=== PATIENT | female | born 1990 | race Caucasian/White ===

== ENCOUNTER 2017-12-22 08:52 | Outpatient (CLI) | payer BC, SELFPAY | END 2017-12-22 09:27 | disposition home or self-care (01) | LOC: LABOR 09:12 → OB 12-23 11:45 | PROVIDERS: PCP Family Medicine; Visit Provider Family Medicine | DX: O13.3 Gestational [pregnancy-induced] hypertension without significant proteinuria, third trimester (principal); Z3A.39 39 weeks gestation of pregnancy | CPT/HCPCS: 59025; G0378; G0379 ==

== ENCOUNTER → 2019-06-25 14:46 | Outpatient (CLI) | payer BC, SELFPAY ==
--- NOTE | 2019-06-25 | DI.US.S_ITS ---
PROCEDURE: US OB <= 14 WEEKS FETUS INDICATIONS: INTIAL SIZING AND DATING OUTSIDE/PRIOR DATING DATA: Last menstrual period (LMP): 05/29/19. LMP-based estimated date of delivery (BRANDON): 02/03/20. First dating scan (date and location): 06/25/19. Estimated date of delivery (BRANDON) from first dating scan: 02/18/20. TECHNIQUE: Real-time scanning was performed of the fetus and maternal pelvic organs, with image documentation. Endovaginal scanning was also performed to better visualize the fetus and maternal ovaries. COMPARISON: None. FINDINGS: Embryo: [place]-rump length measures 3 mm corresponding to 6 weeks 0 days. Heart rate measures 112 beats per minute. BRANDON is 02/18/20. Measurement variability in dating: +/- 4 weeks by LMP, +/- 7 days by mean sac diameter (use before 6 weeks gestation if crown-rump length not able to be measured), +/- 5 days by crown-rump length (up to 8 weeks 6 days gestation), +/- 7 days by crown-rump length (up to 13 weeks 6 days gestation). Maternal organs: Within normal limits, with a corpus luteal cyst. Limited images through the kidneys demonstrate no hydronephrosis. IMPRESSION: 6 week 0 day garcia IUP. Dictated by: Ray VICTORIA Interpreted: Pamela Spann MD on 06/25/2019 at 15:50 Approved by: Rodriguez Gomez M.D. on 06/29/2019 at 9:34
== END ==
PROVIDERS: PCP Family Medicine; Visit Provider Family Medicine
DX: Z34.91 Encounter for supervision of normal pregnancy, unspecified, first trimester (principal); Z3A.01 Less than 8 weeks gestation of pregnancy
CPT/HCPCS: 76801

== ENCOUNTER → 2019-09-17 14:43 | Outpatient (CLI) | payer BC, SELFPAY ==
--- NOTE | 2019-09-17 | DI.US.S_ITS ---
PROCEDURE: US OB >= 14 WEEKS FETUS INDICATIONS: ANATOMY SCAN OUTSIDE/PRIOR DATING DATA: Last menstrual period (LMP): 04/29/19. LMP-based estimated date of delivery (BRANDON): 02/03/20. First dating scan (date and location): 06/25/19. Estimated date of delivery (BRANDON) from first dating scan: 02/18/20. TECHNIQUE: Real-time scanning was performed of the fetus, with image documentation and biometric measurements. Endovaginal scanning: Not performed COMPARISON: [facility], OB <= 14 WEEKS FETUS, 06/25/2019, 15:08. FINDINGS: General: A single living intrauterine gestation is present. Presentation: Vertex. Placenta: Placental position is anterior, without previa. Amniotic fluid index: 13.0 cm, normal range is 5-24 cm. heart rate: 150 beats per minute. Maternal cervical canal: 3.5 cm long. Normal lower limit is 2.5 cm. biometrics: Biparietal diameter: 4.5 cm, 19 weeks 4 days Head circumference: 16.2 cm, 19 weeks zero days Abdominal circumference: 13.7 cm, 19 weeks one day Femur length: 2.9 cm, 18 weeks 6 days Estimated gestational age from initial scan: 18 weeks zero days Composite gestational age from present scan: 19 weeks 2 days Estimated weight and percentile: 270 g, 95th percentile Measurement variability for biometric dating: +/- 7 days from 14 weeks to 15 weeks 6 days gestation, +/- 10 days from 16 weeks to 21 weeks 6 days gestation, +/- 2 weeks from 22 weeks to 27 weeks 6 days gestation, +/- 3 weeks for 28 weeks gestation or later. weight reference: 4500 g or EFW >90/95% is considered macrosomia or large for gestational age. EFW <10% is small for gestational age. EFW 5% or less is considered intra-uterine growth restriction. Anatomic survey: Neuro: Ventricles are non-dilated at less than 10 mm. Cisterna magna is normal at 3-11 mm. Cerebellum is normal in size and morphology. Nuchal skin fold: Normal at less than 6 mm between 14-21 weeks gestational age. Face: Nose and lips, facial profile are normal. Spine: No evidence for spina bifida. Heart: 4-chambered heart is present, with normal ventricular outflow tracts. Diaphragm: Diaphragm is intact. Stomach: Left-sided stomach is present. Kidneys: No hydronephrosis. Normal is less than 5 mm in 2nd trimester, less than 7 mm in 3rd trimester. Cord: 3-vessel cord has orthotopic insertion. Bladder: Normal in size. Extremities: All 4 extremities identified. IMPRESSION: Single living intrauterine fetus in vertex presentation demonstrating top normal interval growth (95th percentile). If there is clinical concern for developing macrosomia, growth assessment ultrasound in 3-4 weeks could be performed Normal anatomic survey Dictated by: Matt Martinez M.D. on 09/17/2019 at 17:28 Approved by: Matt Martinez M.D. on 09/17/2019 at 17:33
== END ==
PROVIDERS: PCP Family Medicine; Referring Provider Family Medicine; Visit Provider Family Medicine
DX: Z36.89 Encounter for other specified antenatal screening (principal); Z3A.19 19 weeks gestation of pregnancy
CPT/HCPCS: 76811

== ENCOUNTER → 2020-01-13 16:22 | Outpatient (ROUT) | payer BC, SELFPAY | PROVIDERS: PCP Family Medicine; Visit Provider Family Medicine | DX: Z34.90 Encounter for supervision of normal pregnancy, unspecified, unspecified trimester (principal) | CPT/HCPCS: 87081 ==

== ENCOUNTER 2020-02-10 11:06 | Outpatient (CLI) | payer BC, SELFPAY | END 2020-02-10 11:55 | disposition home or self-care (01) | LOC: OB 02-14 10:44 | PROVIDERS: PCP Family Medicine; Referring Provider Family Medicine; Visit Provider Family Medicine | DX: O48.0 Post-term pregnancy (principal); Z3A.40 40 weeks gestation of pregnancy | CPT/HCPCS: 59025; G0378; G0379 ==

== ENCOUNTER → 2020-02-11 10:31 | Outpatient (CLI) | payer BC, SELFPAY ==
[2020-02-11 22:26] LABS: COVID19 Sendout Not Detected (Not Detect)
== END ==
PROVIDERS: PCP Family Medicine; Visit Provider Nurse Practitioner
DX: Z01.812 Encounter for preprocedural laboratory examination (principal)
CPT/HCPCS: 87635

== ENCOUNTER 2020-02-14 07:07 | Inpatient (IN) | payer BC, SELFPAY ==
[2020-02-14 07:25] VITALS: BP 141/86
[2020-02-14 08:13] LABS: Add Manual Diff / Slide Review NO; Basophils Absolute Auto 100 /uL (0-100); Basophils Percent Auto 1.1 % (0-2); Eosinophils Absolute Auto 100 /uL (0-450); Eosinophils Percent Auto 1.4 % (2-4); Hematocrit 37.6 % (36-46); Hemoglobin 12.8 g/dL (12.0-16.0); Lymphocytes Absolute Auto 2400 /uL (1100-4500); Lymphocytes Percent Auto 24.4 % (25-40); Mean Corpuscular HGB Conc 33.9 % (30-36); Mean Corpuscular Hemoglobin 31.4 PG (26-34); Mean Corpuscular Volume 92.5 fL (80-100); Monocytes Absolute Auto 700 /uL (0-900); Monocytes Percent Auto 6.6 % (3-14); Neutrophils Absolute Auto 6600 /uL (1500-7000); Neutrophils Percent Auto 66.5 % (50-75); Platelet Count 247 X10^3/uL (150-400); Red Blood Cell Count 4.07 X10^6/uL (4.0-5.2); Red Cell Distribution Width 13.7 % (11.6-14.8)
[2020-02-14] MEDS: LACTATED RINGERS 1,000 ML 100 ML IV (08:21)
[2020-02-14] MEDS: OXYTOCIN PREMIX 30 UNIT/500 ML PLAST..BAG IV (08:22)
--- NOTE | 2020-02-14 15:03 | P.PCNOB_ITS ---
Labor & Delivery Delivery date: 02/14/20 Intrapartal events: Precipitous Labor < 3 hours Cervical ripening method: none Induction method: per pitocin protocol Delivery augmentation: rupture of membranes Delivery monitor: external FHT and external uterine Route of delivery: L&D Laceration Description: Perineal - 2nd Degree Delivery repair: chromic Estimated blood loss (mL): 300 Anesthesia type: None Complications: none Narrative: Identifying data: Pleasant 29-year-old at 40 and 6 7th weeks estimated gestational age presents to labor and delivery for induction of labor due to history of precipitous delivery and postdates. Patient had coded screening that was negative prior to admission. She had a unremarkable . She is GBS negative. She is Rh negative and status post RhoGAM. Glucose tolerance test 134. Patient was found to be 3-4 cm dilated at the onset of the induction -1 to 0 station 85% effaced. Pitocin was begun Stage I colon lasted 1 hour and 13 minutes Pitocin was started and patient had irregular contractions but did not have significant pain. Maximum Pitocin was 10. Artificial rupture membranes was performed for augmentation of labor at 12:55 p.m. which was clear fluid. Serge plummer immediately had increase in frequency of her uterine contractions and as well her discomfort with the uterine contractions. The Pitocin was turned down to 6 and then to 3 and then shortly thereafter was turned off. External tocometer and heart monitor were used throughout this stage. Baby had a baseline in the 130s with moderate variability and accelerations with occasional variable D cells. This was a category 1 tracing. Uterine contractions occasionally showed coupling and contractions every 1-3 minutes. Ultrasound of baby showed possible L OT position. Once rupture membranes more regular and significant uterine contractions immediately instituted. I checked the patient at approximately 1:30 a.m. and she had made change from 4-5 cm when I did her rupture membranes to 6 or 7 cm. This was 35 minutes after rupture membranes. Fluid was clear. Patient was ruptured for 1 hour and 13 minutes prior to delivery. Patient was noted to have anterior lip and I was phoned to come over. Patient was noted to be complete at 2:08 p.m. and began pushing immediately. Stage II lasted 10 minutes Normal spontaneous vaginal delivery of a viable female with Apgars 8 at 1 minute and 9 at 5 minutes. Weight is pending. Mom was able to effectively push. Baby was felt to be in CHRISTINA presentation. External heart monitor was used throughout this stage which showed re assuring heart tones with the cells to the 110s 120s with pushing with good recovery and excellent variability. Overall category 1 tracing. Uterine contractions every 2-3 minutes without Pitocin. Within just a few pushes my baby was crying. Mom was feeling significant amount of pressure and therefore continue to push with a very tight perineum and her previous second-degree scar. The tissue was just not stretching from mom was able to continue to generate enough pressure and the head was delivered in CHRISTINA position. There was a loose nuchal cord that was reduced on the perineum and the knee easily the anterior and posterior shoulder were delivered a baby was placed on mom's chest without any problems. Baby was vigorous at delivery. Stage III lasted 3 minutes Normal spontaneous vaginal delivery of an intact minimally calcified placenta with her peripheral cord insertion. Three-vessel cord. Pitocin was run in immediately as placenta was delivering. The cervix and vagina showed no lacerations or no abnormalities. There was a very small second-degree perineal laceration that was repaired with 1% lidocaine with 2-0 and 3-0 chromic suture in the usual fashion. There was a small right periurethral laceration. At the time this dictation both mom and baby are doing well. Plan for aftercare: Routine care A negative, antibody screen negative will need RhoGAM
--- NOTE | 2020-02-14 15:18 | P.HPOB_ITS ---
OB HPI Date/Time Date of admission: 02/14/20 Date Patient Seen: 02/14/20 Time Patient Seen: 08:00 History of Present Condition Chief complaint: maternity : 2 Para: 1 Estimated Date of Delivery: 02/08/20 Estimated Gestational Age (weeks): 40 6/7 Narrative: Daniela Luna is a 29 year old female 40 and 6 7th weeks estimated gestational age based on an EDC of 02/08/2020. This was confirmed by first- trimester ultrasound an LMP but there was some variation and so initial due date by LMP was February 02 blood by 1st ultrasound was February 17 so due to subsequent ultrasounds including 13 weekly came up with the February 07 due date. She is here for induction due to rapid delivery previously. She has had a unremarkable . care was begun early on and she had a total of 14 visits. She had a weight gain of 35 lb. Blood work was unremarkable. She had gestational hypertension with her 1st but did not with this . She monitors her blood pressure throughout this . Past medical history is unremarkable Medications vitamins Allergies: No known drug allergies Past surgical history: Unremarkable Health and behavior is active, does not smoke or use alcohol or illicit drugs Family history: No history of congenital defect Social history: Patient previously was full bottom is now she is a [id number] mom. She lives on [facility]. She lives with her and her daughter January who is 2. She is originally from [place] in her parents are here visiting. She has good support. Indications Indication for induction OB: post dates History of Present care: none and good care Dating criteria: LMP confirmed by 1st trimester US Ultrasounds: normal 1st trimester US and normal mid trimester US Obstetrical complications: none Medical complications: none Preadmission Labs Blood type: A (-) negative -: Antibody screen: negative, Cystic fibrosis screen: negative, GBS status: negative, HBsAG: negative, HIV: negative, HSV 1: negative, HSV 2: negative and RPR/VDLR: negative -: Chlamydia screen: not detected and Gonorrhea screen: not detected -: Rubella: immune and Varicella: immune HCT: 36.5 HCAB: negative Integrated screen: none. NT normal Sequential screen: none Urine: neg Fasting blood glucose: 134 Prior (ies) History: 12/24/2017 normal spontaneous vaginal delivery of a viable female infant after a 2-1/2 hour labor at [facility] weighing 7 lb 6.5 oz name is January Evaluation Evaluation Laboratory results: Laboratory Tests 02/14/20 02/14/20 08:11 08:13 WBC 10.0 RBC 4.07 Hgb 12.8 Hct 37.6 MCV 92.5 MCH 31.4 MCHC 33.9 RDW 13.7 Plt Count 247 Neut % (Auto) 66.5 Lymph % (Auto) 24.4 L [place] % (Auto) 6.6 Eos % (Auto) 1.4 L Baso % (Auto) 1.1 Neut # (Auto) 6600 Lymph # (Auto) 2400 [place] # (Auto) 700 Eos # (Auto) 100 Baso # (Auto) 100 Blood Type A Negative Antibody Screen Negative Antibody Identification Cancelled [facility] Family History Mother No problems noted. Social History (Updated 12/24/17 @ 09:44 by Eloise Lozoya MD) number of children: 0 household members: spouse lives independently: Yes caregiver/support person: Yes housing: house pets and animals: Yes education level: college occupational status: employed Smoking Status: Never smoker Type(s) of exercise: walking Meds Home Medications and Allergies Home Medications Medication Instructions Recorded Confirmed Type PNV cmb#95-ferrous fumarate-FA 1 tab PO DAILY 12/24/17 02/14/20 History [] Allergies Allergy/AdvReac Type Severity Reaction Status Date / Time No Known Drug Allergies Allergy Verified 02/11/20 10:39 Review of Systems Review of Systems Narrative: Baby has been active. Denies headaches. Mild swelling. No significant change in discharge. Intermittent uterine contractions but nothing regular. Exam Vital Signs (past 8 hours): - 02/14/20 07:25 Blood Pressure 141/86 H Narrative Exam Narrative: Afebrile, vital signs are stable HEENT: Unremarkable Neck: Supple Chest: Clear to auscultation without wheezes rhonchi or crackles Cor: Regular rate and rhythm without a murmur Abdomen: Positive bowel sounds, soft, nontender, baby is vertex left occiput transverse, estimated weight 7 half to 8 lb Cervix: 3-4 cm dilated, 85% effaced, -1 to 0 station, intact bag of water Extremities, trace edema, pulses intact, DTRs trace heart tracing baseline 130s with moderate variability and accelerations and no decelerations. Uterine contractions every 3-4 minutes irregular Objective Labs Result Diagrams: 02/14/20 08:13 Labs: Laboratory Results - last 24 hr 02/14/20 02/14/20 08:11 08:13 WBC 10.0 RBC 4.07 Hgb 12.8 Hct 37.6 MCV 92.5 MCH 31.4 MCHC 33.9 RDW 13.7 Plt Count 247 Neut % (Auto) 66.5 Lymph % (Auto) 24.4 L [place] % (Auto) 6.6 Eos % (Auto) 1.4 L Baso % (Auto) 1.1 Neut # (Auto) 6600 Lymph # (Auto) 2400 [place] # (Auto) 700 Eos # (Auto) 100 Baso # (Auto) 100 Blood Type A Negative Antibody Screen Negative Antibody Identification Cancelled Assessment and Plan Assessment and Plan Assessment and Plan narrative: 29-year-old at 40 and 6 7th weeks estimated gestational age here for induction of labor due to history of precipitous delivery. A negative, status post RhoGAM, antibody screen negative they had to do the manual which was negative. GBS negative. Status post Tdap and flu shot. Rubella immune. Glucose tolerance test 134 Plan: Routine management Continue Pitocin for a bit and then will perform artificial rupture membranes is a suspected rapid delivery after this. She does not want epidural anesthesia. She does not want anesthesia unless she requested.
[2020-02-14] MEDS: IBUPROFEN 600 MG TABLET PO ×2 (16:04→23:37)
[2020-02-14] MEDS: DERMOPLAST SPRAY 20% 60 ML 1 SPRAY TOP (16:36)
[2020-02-15 06:27] LABS: Add Manual Diff / Slide Review NO; Basophils Absolute Auto 0 /uL (0-100); Basophils Percent Auto 0.3 % (0-2); Eosinophils Absolute Auto 100 /uL (0-450); Eosinophils Percent Auto 0.5 % (2-4); Hematocrit 34.8 % (36-46); Hemoglobin 11.7 g/dL (12.0-16.0); Lymphocytes Absolute Auto 2600 /uL (1100-4500); Lymphocytes Percent Auto 20.4 % (25-40); Mean Corpuscular HGB Conc 33.5 % (30-36); Mean Corpuscular Hemoglobin 30.8 PG (26-34); Mean Corpuscular Volume 91.9 fL (80-100); Monocytes Absolute Auto 600 /uL (0-900); Neutrophils Absolute Auto 9500 /uL (1500-7000); Neutrophils Percent Auto 73.8 % (50-75); Platelet Count 254 X10^3/uL (150-400); Red Blood Cell Count 3.79 X10^6/uL (4.0-5.2); Red Cell Distribution Width 13.3 % (11.6-14.8); White Blood Cell Count 12.8 X10^3/uL (4.5-11.0)
[2020-02-15] MEDS: PRENATAL VIT,CALC/IRON/FOLIC 1 TABLET 1 TAB PO (08:11)
[2020-02-15] MEDS: DOCUSATE 100 MG CAPSULE PO (08:11)
[2020-02-15] MEDS: IBUPROFEN 600 MG TABLET PO (08:11)
--- NOTE | 2020-02-15 09:08 | P.DS_ITS ---
Discharge Providers Provider Date of admission: 02/14/20 07:07 Discharge Date: 02/15/20 Primary care physician: Eloise Lozoya MD Consults: 02/15/20 14:45 Consult to System Planning Engineer Routine Comment: Discharge provider: Eloise Lozoya MD Summary Time Spent with Patient Time attestation: Total time spent providing and/or coordinating discharge services:30 minutes patient was admitted for induction of labor and had precipitous delivery without complications. Patient Rh negative. Patient without complications. Patient with decreased lochia. Patient with pain well controlled with Motrin. Patient tolerating p.o. without difficulty and breast-feeding well without difficulty. Patient discharged home in stable condition day 1. With routine discharge instructions on vitamins and Motrin as needed as well as Colace. Will follow-up in the clinic in 2 weeks and 6 weeks. Objective Labs Result Diagrams: 02/15/20 06:05 Labs: Laboratory Results - last 24 hr 02/14/20 02/14/20 02/15/20 08:11 08:13 06:05 WBC 10.0 RBC 4.07 Hgb 12.8 Hct 37.6 MCV 92.5 MCH 31.4 MCHC 33.9 RDW 13.7 Plt Count 247 Neut % (Auto) 66.5 Lymph % (Auto) 24.4 L [place] % (Auto) 6.6 Eos % (Auto) 1.4 L Baso % (Auto) 1.1 Neut # (Auto) 6600 Lymph # (Auto) 2400 [place] # (Auto) 700 Eos # (Auto) 100 Baso # (Auto) 100 Blood Type A Negative Antibody Screen Negative Antibody Identification Cancelled Maternal Bleed Negative 02/15/20 06:05 WBC 12.8 H RBC 3.79 L Hgb 11.7 L Hct 34.8 L MCV 91.9 MCH 30.8 MCHC 33.5 RDW 13.3 Plt Count 254 Neut % (Auto) 73.8 Lymph % (Auto) 20.4 L [place] % (Auto) 5.0 Eos % (Auto) 0.5 L Baso % (Auto) 0.3 Neut # (Auto) 9500 H Lymph # (Auto) 2600 [place] # (Auto) 600 Eos # (Auto) 100 Baso # (Auto) 0 Blood Type Antibody Screen Antibody Identification Maternal Bleed Exam Vital Signs (past 8 hours): Afebrile vital signs are stable chest: Clear to auscultation without wheezes rhonchi or crackles cor: Regular rate and rhythm wi thout murmur abdomen: Positive bowel sounds, soft, nontender, nondistended extremities:moves all extremities well neurologic exam no nonfocal Discharge Plan Discharge Plan Patient Disposition: Home Health Service Discharge orders & Medications Prescriptions: New docusate sodium [DOK] 100 mg Capsule 100 mg PO BID Qty: 60 RF: 0 ibuprofen 600 mg Tablet 600 mg PO Q6HR PRN (Reason: Pain, Mild (1-3)) Qty: 60 RF: 0 Continued PNV cmb#95-ferrous fumarate-FA [] 28 mg iron- 800 mcg Tablet 1 tab PO DAILY RF: 0 Follow up/Referrals: Eloise Lozoya MD [Primary Care Provider] - Diet/Activity/Treatments Diet: Diet as Tolerated Discharge Data Primary Care Provider: Eloise Lozoya
[2020-02-15] MEDS: RHO(D) IMMUNE GLOBULIN 1,500 UNIT SYRINGE 1500 UNIT IM (12:05)
== END 2020-02-15 12:35 | disposition home health service (06) | DRG 807 ==
PROVIDERS: Admitting Provider Family Medicine; PCP Family Medicine; Referring Provider Family Medicine; Visit Provider Family Medicine
DX: O48.0 Post-term pregnancy (principal); Z37.0 Single live birth; O62.3 Precipitate labor; Z3A.40 40 weeks gestation of pregnancy; O70.1 Second degree perineal laceration during delivery
CPT/HCPCS: 36415; 59050; 76815; 85025; 85461; 86850; 86900; 86901; G0379; J2590; J2790

== ENCOUNTER → 2020-11-16 10:11 | Outpatient (CLI) | payer BC, SELFPAY ==
[2020-11-16] MEDS: COVID-19 VACC, Ad26(JANSSEN)/PF 0.5 ML IM (10:15)
== END ==
PROVIDERS: PCP Family Medicine; Visit Provider Internal Medicine
DX: Z23 Encounter for immunization (principal)
CPT/HCPCS: 0031A; 91303

== ENCOUNTER → 2021-09-12 15:32 | Outpatient (CLI) | payer BC, SELFPAY ==
--- NOTE | 2021-09-12 15:35 | DI.US.S_ITS ---
PROCEDURE: US OB <= 14 WEEKS FETUS INDICATIONS: ROUTINE OUTSIDE/PRIOR DATING DATA: Last menstrual period (LMP): 07/15/2021 LMP-based estimated date of delivery (BRANDON): 04/21/2022. First dating scan (date and location): 09/12/2021. Estimated date of delivery (BRANDON) from first dating scan: 04/29/2022. The calculations are made using the ultrasound BRANDON of 04/29/2022. TECHNIQUE: Real-time scanning was performed of the fetus and maternal pelvic organs, with image documentation. Endovaginal scanning was also performed to better visualize the fetus and maternal ovaries. COMPARISON: [facility], , OB <= 14 WEEKS FETUS, 06/25/2019, 15:08. FINDINGS: Embryo: [place]-rump length measures 1.1 cm corresponding to 7 weeks 2 days. Heart rate: 144 Maternal organs: Ovaries within normal limits, with right corpus luteal cyst. IMPRESSION: 7 week 2 day single living IUP. Incidental note of debris within the maternal urinary bladder which can be associated with cystitis in the appropriate clinical setting. Recommend correlation with urinalysis. We strive to produce accurate, complete, and clear reports of imaging services. To assist us in improving patient care, this report was composed using standard report templates and voice recognition software. Therefore, it may contain abnormal punctuation, insertions and/or omissions. Occasional wrong-word or sound-alike substitutions may occur. Though we review the report and make efforts to correct it, we do recommend that the report be read carefully in proper context to recognize any text inaccuracies. Dictated by: Ray Marie Sienna Interpreted: Jan Mckeon MD on 09/12/2021 at 16:51 Transcribed by: QUENTIN on 09/12/2021 at 16:52 Approved by: Jan Mckeon M.D. on 09/12/2021 at 18:08
== END ==
PROVIDERS: PCP Family Medicine; Referring Provider Family Medicine; Visit Provider Family Medicine
DX: Z34.81 Encounter for supervision of other normal pregnancy, first trimester (principal); Z3A.01 Less than 8 weeks gestation of pregnancy
CPT/HCPCS: 36415; 76801; 76817; 84443; 85025; 86592; 86695; 86696; 86706; 86762; 86780; 86787; 86803; 86850; 86900; 86901; 87340; 87389

== ENCOUNTER → 2021-09-12 16:30 | Outpatient (CLI) | payer BC, SELFPAY ==
[2021-09-12 17:01] LABS: Add Manual Diff / Slide Review NO; Basophils Absolute Auto 0 /uL (0-100); Basophils Percent Auto 0.5 % (0-2); Eosinophils Absolute Auto 0 /uL (0-450); Eosinophils Percent Auto 0.4 % (2-4); Hematocrit 36.2 % (36-46); Hemoglobin 12.1 g/dL (12.0-16.0); Lymphocytes Absolute Auto 2600 /uL (1100-4500); Lymphocytes Percent Auto 29.2 % (25-40); Mean Corpuscular HGB Conc 33.5 % (30-36); Mean Corpuscular Hemoglobin 29.6 PG (26-34); Mean Corpuscular Volume 88.4 fL (80-100); Monocytes Absolute Auto 500 /uL (0-900); Monocytes Percent Auto 5.7 % (3-14); Neutrophils Absolute Auto 5700 /uL (1500-7000); Neutrophils Percent Auto 64.2 % (50-75); Platelet Count 250 X10^3/uL (150-400); Red Blood Cell Count 4.09 X10^6/uL (4.0-5.2); Red Cell Distribution Width 13.4 % (11.6-14.8); White Blood Cell Count 8.9 X10^3/uL (4.5-11.0)
[2021-09-12 18:48] LABS: Thyroid Stimulating Hormone 2.57 uIU/mL (0.47-4.68)
[2021-09-12 19:02] LABS: Rubella Antibody IgG 23.1 IU/mL (>15)
[2021-09-12 19:07] LABS: HIV 1 & 2 Ab/Ag 4th Gen Combo NEGATIVE (NEGATIVE); Hep C Virus Ab w/Reflex Quant NEGATIVE s/c (NEGATIVE)
[2021-09-12 19:55] LABS: Hepatitis B Surface Antigen NEGATIVE s/c (NEGATIVE)
[2021-09-13 02:36] LABS: Hepatitis B Surf AB Quant 64.8 mIU/mL (Immunity>9.9)
[2021-09-13 03:36] LABS: RPR Screen Non Reactive (Non Reactive)
[2021-09-13 05:26] LABS: HSV 2 IGG AB < 0.91 index (0.00-0.90)
[2021-09-13 08:08] LABS: Varicella IgG Antibody <135 index (Immune >165)
[2021-09-13 20:58] LABS: Treponema pallidum Antibodies Non Reactive (Non Reactive)
== END ==
PROVIDERS: PCP Family Medicine; Referring Provider Family Medicine; Visit Provider Family Medicine
DX: Z34.80 Encounter for supervision of other normal pregnancy, unspecified trimester (principal)
CPT/HCPCS: 36415; 84443; 85025; 86592; 86695; 86696; 86706; 86762; 86780; 86787; 86803; 86850; 86900; 86901; 87340; 87389

== ENCOUNTER → 2021-12-14 14:10 | Outpatient (CLI) | payer BC, SELFPAY ==
--- NOTE | 2021-12-14 14:11 | DI.US.S_ITS ---
PROCEDURE: US OB >= 14 WEEKS FETUS INDICATIONS: anatomy screen OUTSIDE/PRIOR DATING DATA: Last menstrual period (LMP): 07/15/2021 LMP-based estimated date of delivery (BRANDON): 04/21/2022. First dating scan (date and location): 09/12/2021. Estimated date of delivery (BRANDON) from first dating scan: 04/29/2022. The calculations are made using 04/29/2022 as BRANDON. TECHNIQUE: Real-time scanning was performed of the fetus, with image documentation and biometric measurements. Endovaginal scanning: Not performed COMPARISON: None. FINDINGS: General: A single living intrauterine gestation is present. Presentation: Cephalic. Placenta: Placental position is posterior , without previa. Amniotic fluid index: 16 cm, normal. Single deepest vertical pocket is 5 cm. heart rate: 147 beats per minute. Maternal cervical canal: 3.4 cm long. biometrics: Biparietal diameter: 5.2 cm Head circumference: 19 cm Abdominal circumference: 16 cm Femur length: 3.3 cm Composite gestational age from present scan: 21 weeks 1 day Estimated weight and percentile: 382 g, 61st percentile Anatomic survey: Neuro: Small choroid plexus cyst in the right lateral ventricle. Ventricles are non-dilated at less than 10 mm. Cisterna magna is normal at 3-11 mm. Cerebellum is normal in size and morphology. Nuchal skin fold: Normal at less than 6 mm between 14-21 weeks gestational age. Face: Nose and lips, facial profile are normal. Spine: No evidence for spina bifida. Heart: 4-chambered heart is present, with normal ventricular outflow tracts. Diaphragm: Diaphragm is intact. Stomach: Left-sided stomach is present. Kidneys: No hydronephrosis. Normal is less than 5 mm in 2nd trimester, less than 7 mm in 3rd trimester. Cord: 3-vessel cord has orthotopic insertion. Bladder: Normal in size. Extremities: All 4 extremities identified. IMPRESSION: Small (3 mm) right lateral ventricle choroid plexus cysts. Otherwise normal anatomic survey We strive to produce accurate, complete, and clear reports of imaging services. To assist us in improving patient care, this report was composed using standard report templates and voice recognition software. Therefore, it may contain abnormal punctuation, insertions and/or omissions. Occasional wrong-word or sound-alike substitutions may occur. Though we review the report and make efforts to correct it, we do recommend that the report be read carefully in proper context to recognize any text inaccuracies. Dictated by: Gilberto Weber M.D. on 12/14/2021 at 16:19 Approved by: Gilberto Weber M.D. on 12/14/2021 at 16:22
== END ==
PROVIDERS: PCP Family Medicine; Referring Provider Family Medicine; Visit Provider Family Medicine
DX: Z36.89 Encounter for other specified antenatal screening (principal); Z3A.21 21 weeks gestation of pregnancy
CPT/HCPCS: 76811

== ENCOUNTER → 2022-01-25 07:03 | Outpatient (CLI) | payer BC, SELFPAY ==
[2022-01-25 09:42] LABS: Glucose Fasting Gestational 78 mg/dL (76-95)
[2022-01-25 10:34] LABS: Glucose Tol Interp,Gestational INTERPRETATION
[2022-01-25 11:47] LABS: Glucose 2 Hour Gest 118 mg/dL (76-155)
[2022-01-26 01:16] LABS: Glucose 1 Hour Gest 153 mg/dL (76-180)
[2022-01-26 08:58] LABS: Glucose 3 Hour Gest 35 mg/dL (76-140)
== END ==
PROVIDERS: PCP Family Medicine; Referring Provider Family Medicine; Visit Provider Family Medicine
DX: R73.09 Other abnormal glucose (principal); Z34.80 Encounter for supervision of other normal pregnancy, unspecified trimester
CPT/HCPCS: 36415; 82951; 82952

== ENCOUNTER → 2022-03-27 11:26 | Outpatient (CLI) | payer BC, SELFPAY ==
[2022-03-28 07:53] LABS: Strep Grp B PCR NEG for Grp B Strep
== END ==
PROVIDERS: PCP Family Medicine; Visit Provider Family Medicine
DX: Z36.85 Encounter for antenatal screening for Streptococcus B (principal)
CPT/HCPCS: 87653

== ENCOUNTER 2022-04-17 12:45 | Inpatient (IN) | payer BC, SELFPAY ==
--- NOTE | 2022-04-17 13:30 | PM.OBHP.IH.1 ---
OB HPI Date/Time Date of admission: 04/17/22 Date Patient Seen: 04/17/22 Time Patient Seen: 13:30 History of Present Condition Chief complaint: BRANDON Calculator Estimated Delivery Date Method Current WG Current Estimate 04/21/22 LMP (Certain) 39w 3d Other Estimates 05/19/22 Ultrasound #1 35w 3d 05/19/22 Manual 35w 3d Final BRANDON - PEDRO Estimated Gestational Age (weeks): 39w3d : 3 Para: 2 Narrative: 31yo at 39w3d here for NST for FHT in the 110s in clinic. Pt reports she has been feeling her baby move, although not as frequently as before. She denies any vaginal bleeding or LOF. She feels intermittent, mild contractions. Her has been complicated by choroid plexus cyst seen on anatomy scan, with normal cfDNA. care: good care, initiated at week # (9) and pounds weight gain (39) Dating criteria OB: LMP confirmed by 1st trimester US Ultrasounds: normal 1st trimester US and abnormal US findings (choroid plexus cyst) Obstetrical complications: none Medical complications OB: none Preadmission Labs Last OB Lab Results: Blood Type A Negative 09/12/21 16:37 Antibody Screen Negative 09/12/21 16:37 Hematocrit 36.2 % (36-46) 09/12/21 16:37 Hemoglobin 12.1 g/dL (12.0-16.0) 09/12/21 16:37 Hepatitis B Surface Antigen Negative s/c (NEGATIVE) 09/12/21 16:37 Hepatitis C Antibody Negative s/c (NEGATIVE) 09/12/21 16:37 Rubella Antibody 23.1 IU/mL (>15) 09/12/21 16:37 Varicella-Zoster IgG Antibody <135 index (Immune >165) L 09/12/21 16:37 Group B Streptococcus (PCR) Neg for grp b strep 03/27/22 11:26 Glucose Tolerance Testing: Fasting (78), 1 hr (153), 2 hr (118) and 3 hr (35) -: Urine: negative Genetic Screens: Cell-free DNA: Normal External Labs -: Urine: negative Prior (ies) Past Pregnancies Del. Date GA/Weeks Labor Lgth Wt Sex Route Outcome Anesthesia Place Delv Breastfeed Preg Comp Name 12/24/17 39 2 7 lb 6 oz Female vaginal live - full term none IH 1 yr induced hyper- Emily 02/14/20 41 1 8 lb 6 oz Female vaginal none IH 1 yr induced hyper- Prabha Delivery Date: 12/24/17 Last Updated by: Rosmery Barron RChristianne Induction Delivery Date: 02/14/20 Last Updated by: Rosmery Barron R.N. Mild elevated BP Evaluation Evaluation Baseline heart rate: 105 Variability: Moderate (11-25) monitor accelerations: Present Monitor Decelerations: Absent Status: Category ll Dilation (cm): 5.5 Effacement (%): 90 Dilation: >/=5 cm Effacement: >/=80% station: +1 Position of cervix: mid Consistency: soft Cloud score: 12 PFSH Family History (Updated 11/07/21 @ 07:51 by Rosmery Barron, RN) Mother No problems noted. Grandmother Breast cancer Ovarian cancer Social History (Updated 12/24/17 @ 09:44 by Eloise Lozoya MD) marital status: number of children: 2 household members: spouse lives independently: Yes caregiver/support person: Yes housing: house pets and animals: Yes education level: college occupational status: employed seatbelt use: always water heater temp set < 120 deg: Yes working smoke detector in home: Yes fire extinguisher in home: Yes carbon monox detector in home: Yes firearms in home: No Smoking Status: Never smoker second hand exposure: No alcohol intake: former substance use type: does not use well-balanced diet: daily or most days daily servings fruits/ve-4 caffeine: Yes (200mg a day) Type(s) of exercise: walking Meds Home Medications and Allergies Home Medications Medication Instructions Recorded Confirmed Type vit no.95-ferrous 1 tab PO DAILY 12/24/17 04/17/22 History fumarate 28 mg-folic acid 800 mcg tablet () calcium carbonate 600 mg calcium 600 mg PO DAILY 11/05/21 04/17/22 History (1,500 mg) tablet (Calcium) Allergies Allergy/AdvReac Type Severity Reaction Status Date / Time No Known Drug Allergies Allergy Verified 04/17/22 12:20 OB Exam Narrative Exam Narrative: Gen: NAD, sitting comfortably in bed, appears well CV: RRR, no murmurs Resp: clear to auscultation bilaterally Abd: soft, nontender, gravid Ext: no edema Assessment and Plan Assessment and Plan Assessment and Plan narrative: 31yo at 39w3d here for NST due to FHT in the 110s in clinic, baseline confirmed at 105 in L&D. Pt with hx of rapid labor, will proceed with IOL anticipating prompt delivery in light of low baseline. FHT otherwise reassuring with excellent accels, and good variability. Rh negative (Rhogam given 02/19/22), GBS negative. - Expectant management, anticipate - Monitor FHT continuously - AROM once pts arrives, hx of precipitous delivery after AROM - If without cervical advancement with AROM, plan to start pitocin - GBS negative, no prophylaxis needed - Plans on natural methods for pain control
[2022-04-17 14:53] LABS: COVID19 -Nasal RAPID Negative (Negative)
[2022-04-17 15:31] LABS: Add Manual Diff / Slide Review NO; Basophils Absolute Auto 0 /uL (0-100); Basophils Percent Auto 0.4 % (0-2); Eosinophils Absolute Auto 0 /uL (0-450); Eosinophils Percent Auto 0.2 % (2-4); Hematocrit 33.2 % (36-46); Hemoglobin 11.1 g/dL (12.0-16.0); Lymphocytes Absolute Auto 1800 /uL (1100-4500); Lymphocytes Percent Auto 19.5 % (25-40); Mean Corpuscular HGB Conc 33.4 % (30-36); Mean Corpuscular Hemoglobin 28.8 PG (26-34); Mean Corpuscular Volume 86.3 fL (80-100); Monocytes Absolute Auto 600 /uL (0-900); Monocytes Percent Auto 6.2 % (3-14); Neutrophils Absolute Auto 6800 /uL (1500-7000); Neutrophils Percent Auto 73.7 % (50-75); Platelet Count 201 X10^3/uL (150-400); Red Blood Cell Count 3.85 X10^6/uL (4.0-5.2); Red Cell Distribution Width 14.2 % (11.6-14.8); White Blood Cell Count 9.2 X10^3/uL (4.5-11.0)
[2022-04-17 15:52] VITALS: BP 133/70
--- NOTE | 2022-04-17 16:03 | PM.OBPNLAB ---
Date/Time Date Patient Seen: 04/17/22 Time Patient Seen: 16:03 Pain Control Pain control: tolerating well Pelvic Exam Dilation (cm): 6 Effacement (%): 90 station: +1 Amniotic membrane status: Ruptured Comments: After informed consent, AROM performed with production of scant clear fluid. Contractions Contraction frequency (min): 2 Status status: Category l Heart Rate Baseline: 120 Monitor Accelerations: Present Monitor Decelerations: Absent Monitor Variability: Moderate Assessment and Plan Comments: 31yo at 39w3d here for NST due to FHT in the 110s in clinic, baseline confirmed at 105 in L&D.? FHT now reassuring after prolonged period with baseline in 105-110 range. Continuing with IOL, AROM performed with scant clear fluid present. Rh negative (Rhogam given 02/19/22), GBS negative. - Expectant management, anticipate - Monitor FHT continuously - Monitor for painful contractions, if no change in 1 hour plan to start pitocin - Plans on natural methods for pain control
[2022-04-17] MEDS: OXYTOCIN PREMIX 30 UNIT/500 ML PLAST..BAG 200 UNIT IV (17:35)
[2022-04-17] MEDS: LIDOCAINE 1% 20 ML (17:35)
--- NOTE | 2022-04-17 17:45 | PM.OBPRVD ---
Labor & Delivery Delivery date: 04/17/22 Intrapartal Events: Precipitous Labor < 3 hours Cervical ripening method: none Induction method: AROM Delivery monitor: external FHT and external uterine Route of delivery: Episiotomy description: None L&D Laceration Description: Perineal - 2nd Degree Delivery repair: vicryl Quantitative Blood Loss: 400 Anesthesia Type: None Complications: None Narrative: PROCEDURE: at 39w3d presented for NST due to FHT in the 110s in clinic. NST confirmed baseline of 105, and the pt was admitted for IOL. FHT improved to baseline of 115-120. AROM was performed with production of clear fluid. The patient progressed through the 1st stage over 15 minutes. Pain was controlled by natural methods. The patient progressed through the 2nd stage over 14 minutes and delivered a viable male infant with APGARs 8/9 at 17:14 via without complications. The cord was cut and clamped after it stopped pulsating. The perineum and vagina were inspected with 2nd degree laceration repaired with 2-O Vicryl. PREPROCEDURE DIAGNOSIS: Intrauterine at 39w3d GBS negative RH negative POSTPROCEDURE DIAGNOSIS: Intrauterine at 39w3d, delivered Same as preprocedure Baby 1: gender: Male Presentation: vertex Position: Left Occiput Anterior Placenta delivery description: Spontaneous Cord Vessel Description: 3 Vessels score (1 min): 8 score (5 min): 9 weight: 8 lb 0.221 oz Plan for aftercare: Routine care (Cord blood sent for Rh status)
[2022-04-17] MEDS: LANOLIN OINT 7 GM 1 APPLIC TOP (19:14)
[2022-04-17] MEDS: DERMOPLAST SPRAY 20% 60 ML 1 SPRAY TOP (19:14)
[2022-04-17] MEDS: IBUPROFEN 600 MG TABLET PO (19:15)
[2022-04-17] MEDS: ACETAMINOPHEN 325 MG TABLET 650 MG PO (23:35)
[2022-04-18] MEDS: IBUPROFEN 600 MG TABLET PO ×3 (01:57→15:06)
[2022-04-18 06:50] LABS: Add Manual Diff / Slide Review NO; Basophils Absolute Auto 100 /uL (0-100); Basophils Percent Auto 0.8 % (0-2); Eosinophils Absolute Auto 0 /uL (0-450); Eosinophils Percent Auto 0.2 % (2-4); Hematocrit 31.9 % (36-46); Hemoglobin 10.8 g/dL (12.0-16.0); Lymphocytes Absolute Auto 2200 /uL (1100-4500); Lymphocytes Percent Auto 19.9 % (25-40); Mean Corpuscular HGB Conc 33.8 % (30-36); Mean Corpuscular Hemoglobin 29.2 PG (26-34); Mean Corpuscular Volume 86.5 fL (80-100); Monocytes Absolute Auto 600 /uL (0-900); Monocytes Percent Auto 5.6 % (3-14); Neutrophils Absolute Auto 8000 /uL (1500-7000); Neutrophils Percent Auto 73.5 % (50-75); Platelet Count 215 X10^3/uL (150-400); Red Blood Cell Count 3.69 X10^6/uL (4.0-5.2); Red Cell Distribution Width 14.2 % (11.6-14.8); White Blood Cell Count 10.8 X10^3/uL (4.5-11.0)
--- NOTE | 2022-04-18 07:56 | P.DS_ITS ---
Discharge Providers Provider Date of admission: 04/17/22 12:45 Discharge Date: 04/18/22 Primary care physician: Eloise Lozoya MD Consults: 04/18/22 17:58 Consult to [facility] Underwriter Routine Comment: Discharge provider: Fadia Muñiz DO Summary Hospital Course Date Patient Seen: 04/18/22 Time Patient Seen: 07:30 Diagnoses: Spontaneous vaginal delivery Rh negative Hospital Course: This is a 31-year-old G3 now P3 after uncomplicated spontaneous vaginal delivery at 39 weeks and 3 days gestation. Patient presented to labor and delivery from the clinic due to low heart rate baseline. She was admitted for induction after this was confirmed on NST. She underwent artificial rupture membranes and went on to quickly deliver a vigorous male infant. A second-degree laceration was repaired in the usual fashion. Pos tpartum course has been uncomplicated. She is ambulating voiding, passing flatus and tolerating a diet. Vaginal bleeding is light and pain well controlled. is going well without concerns in the . She is A negative. Her is A negative as well so no RhoGAM given. Advised patient to call for fevers, severe pain or bleeding through more than a pad an hour. Follow-up in clinic in 6 weeks or sooner if needed. Peripartum Data Infant Delivery Method: Natural Vaginal Laceration Description: Perineal - 2nd Degree Procedures: Spontaneous vaginal delivery 1: Gender: Male Disposition of : home Discharge Diagnosis (1) Spontaneous vaginal delivery: Status: Acute (2) 39 weeks gestation of : Status: Acute Status at Discharge Cognitive/behavioral status at discharge: at baseline, oriented Functional status at discharge: independent ambulation Overall status at discharge: patient is progressing back to baseline Time Spent with Patient Time attestation: Total time spent providing and/or coordinating discharge services: Time spent: Less than 30 minutes Objective Labs Result Diagrams: 04/18/22 06:18 Labs: Laboratory Results - last 24 hr 04/17/22 04/17/22 04/17/22 13:28 14:25 15:18 WBC 9.2 RBC 3.85 L Hgb 11.1 L Hct 33.2 L MCV 86.3 MCH 28.8 MCHC 33.4 RDW 14.2 Plt Count 201 Neut % (Auto) 73.7 Lymph % (Auto) 19.5 L Young % (Auto) 6.2 Eos % (Auto) 0.2 L Baso % (Auto) 0.4 Neut # (Auto) 6800 Lymph # (Auto) 1800 Young # (Auto) 600 Eos # (Auto) 0 Baso # (Auto) 0 SARS-CoV-2 (PCR) Negative Blood Type A Negative Antibody Screen Negative 04/18/22 06:18 WBC 10.8 RBC 3.69 L Hgb 10.8 L Hct 31.9 L MCV 86.5 MCH 29.2 MCHC 33.8 RDW 14.2 Plt Count 215 Neut % (Auto) 73.5 Lymph % (Auto) 19.9 L Young % (Auto) 5.6 Eos % (Auto) 0.2 L Baso % (Auto) 0.8 Neut # (Auto) 8000 H Lymph # (Auto) 2200 Young # (Auto) 600 Eos # (Auto) 0 Baso # (Auto) 100 SARS-CoV-2 (PCR) Blood Type Antibody Screen Exam Vital Signs (past 8 hours): Temperature 98.2? blood pressure 114/81 heart rate 86 Narrative Exam Narrative: General: Awake and alert, no acute distress. HEENT: NCAT, EOMI, moist oral mucosa CV: Regular rate and rhythm, no murmurs, rubs or gallops Lungs: CTAB, no wheezes, rales, or rhonchi Abdomen: Soft, nontender; bowel tones active; uterus firm 1 cm below umbilicus Extremities: Warm, no edema Discharge Plan Discharge Plan Patient Disposition: Home Discharge orders & Medications Prescriptions: New docusate sodium 100 mg Capsule 100 mg PO DAILY Qty: 30 0RF ibuprofen 600 mg Tablet 600 mg PO Q6HR PRN (Reason: Pain, Mild (1-3)) Qty: 30 0RF Continued calcium carbonate [Calcium 600] 600 mg calcium (1,500 mg) tablet 600 mg PO DAILY PNV cmb#95-ferrous fumarate-FA [] 28 mg iron- 800 mcg Tablet 1 tab PO DAILY Follow up/Referrals: Meggan Alvarez MD [Physician] - 6 Weeks Eloise Lozoya MD [Primary Care Provider] - Diet/Activity/Treatments Diet: Diet as Tolerated Skin/Wound/Dressing Care Report to your healthcare provider any signs of infection, such as:: chills, fev er, night sweats, increased pain, unusual drainage and unusual redness Visit Report/Discharge Packet Visit Report Forms: Patient Portal/API, Stroke Signs & Symptoms Discharge Data Primary Care Provider: Eloise Lozoya
[2022-04-18] MEDS: DOCUSATE 100 MG CAPSULE PO (08:38)
[2022-04-18] MEDS: FERROUS SULFATE 325 MG TABLET PO (08:39)
[2022-04-18] MEDS: PRENATAL VIT,CALC/IRON/FOLIC 1 TABLET 1 TAB PO (08:39)
[2022-04-18] MEDS: ACETAMINOPHEN 325 MG TABLET 650 MG PO (13:55)
== END 2022-04-18 15:10 | disposition home or self-care (01) | DRG 807 ==
PROVIDERS: Admitting Provider Family Medicine; PCP Family Medicine; Referring Provider Family Medicine; Visit Provider Family Medicine
DX: O35.0XX0 Maternal care for (suspected) central nervous system malformation in fetus, not applicable or unspecified (principal); Z37.0 Single live birth; O76 Abnormality in fetal heart rate and rhythm complicating labor and delivery; O62.3 Precipitate labor; Z3A.39 39 weeks gestation of pregnancy; Z67.11 Type A blood, Rh negative; O70.1 Second degree perineal laceration during delivery; Z20.822 Contact with and (suspected) exposure to COVID-19
CPT/HCPCS: 36415; 59025; 59050; 59400; 85025; 86850; 86900; 86901; 87635; C9803; G0379; J2590

== ENCOUNTER → 2023-03-31 16:48 | Outpatient (ROUT) | payer SELFPAY ==
[2023-03-31 17:12] LABS: COVID19 -Nasal RAPID Negative (Negative)
== END ==
PROVIDERS: PCP Family Medicine; Visit Provider Internal Medicine
DX: J02.9 Acute pharyngitis, unspecified (principal); Z20.822 Contact with and (suspected) exposure to COVID-19
CPT/HCPCS: 87635

== ENCOUNTER → 2024-10-25 16:50 | Outpatient (CLI) | payer BC, SELFPAY ==
--- NOTE | 2024-10-25 16:53 | DI.RAD.S_ITS ---
PROCEDURE: XR HAND LT MIN 3V INDICATIONS: HAND PAIN TECHNIQUE: 3 views of the hand(s) acquired. COMPARISON: None. FINDINGS: Bones: There are no osseous abnormalities Joints: The joint spaces are normal in width and alignment without arthritic change. Soft tissues: No soft tissue abnormality. IMPRESSION: Normal. Dictated by: Jayme Mayer M.D. on 10/26/2024 at 12:02 Approved by: Jayme Mayer M.D. on 10/26/2024 at 12:03
--- NOTE | 2024-10-25 16:54 | DI.RAD.S_ITS ---
PROCEDURE: XR HAND RT MIN 3V INDICATIONS: HAND PAIN TECHNIQUE: 3 views of the hand(s) acquired. COMPARISON: None. FINDINGS: Bones: There are no osseous abnormalities Joints: The joint spaces are normal in width and alignment without arthritic change. Soft tissues: No soft tissue abnormality. IMPRESSION: Normal. Dictated by: Jayme Mayer M.D. on 10/26/2024 at 12:03 Approved by: Jayme Mayer M.D. on 10/26/2024 at 12:03
== END ==
LOC: RAD 16:53
PROVIDERS: PCP Family Medicine; Referring Provider Family Medicine; Visit Provider Family Medicine
DX: M25.541 Pain in joints of right hand (principal); M25.542 Pain in joints of left hand; M79.89 Other specified soft tissue disorders
CPT/HCPCS: 73130

== ENCOUNTER → 2025-03-03 07:27 | Outpatient (CLI) | payer BC, SELFPAY ==
--- NOTE | 2025-03-03 07:29 | DI.US.S_ITS ---
PROCEDURE: US ABDOMEN LIMITED INDICATIONS: RUQ PX AND NASEUA TECHNIQUE: Real-time scanning was performed of the abdominal and retroperitoneal organs, with image documentation. COMPARISON: None. FINDINGS: Liver: The liver demonstrates diffusely increased echotexture without focal abnormalities consistent with chronic hepatocellular disease/hepatic steatosis. Gallbladder: No gallstones. No wall thickening. No pericholecystic edema. Negative sonographic Diggs's sign. Biliary ducts: Intrahepatic bile ducts are non-dilated. Extrahepatic bile duct caliber measures 3 mm. Normal is 6-7 mm or less in diameter, or 10 mm or less post-cholecystectomy. Pancreas: Visualized portions of the pancreas are sonographically normal. Miscellaneous: No free abdominal fluid. IMPRESSION: Mildly echogenic liver parenchyma without focal intrahepatic lesions likely representing mild hepatic steatosis. Otherwise, no sonographic abnormalities identified in the right upper abdomen. Dictated by: Donaldo Vivar M.D. on 03/03/2025 at 9:26 Approved by: Donaldo Vivar M.D. on 03/03/2025 at 9:27
== END ==
LOC: US 07:27
PROVIDERS: PCP Family Medicine; Referring Provider Family Medicine; Visit Provider Family Medicine
DX: R10.9 Unspecified abdominal pain (principal)
CPT/HCPCS: 76705